=== PATIENT | male | born 2000 | race Caucasian/White ===

== ENCOUNTER 2023-12-19 12:35 | Emergency (ER) | payer MEDICAID, SELFPAY ==
[2023-12-19 12:36] VITALS: BMI 31.3
--- NOTE | 2023-12-19 12:48 | PC.NURSE ---
PT CALLED BACK X1 @12:46. NO RESPONSE
--- NOTE | 2023-12-19 13:14 | PC.NURSE ---
advised pt was waiting outside. when looking for pt hayder were not found outside and did not answer when name was called.
--- NOTE | 2023-12-19 13:45 | PC.NURSE ---
pt was not found in lobby or outside.
== END 2023-12-19 13:45 | disposition left against medical advice (07) ==
PROVIDERS: Emergency Provider Emergency Medicine
DX: Z53.21 Procedure and treatment not carried out due to patient leaving prior to being seen by health care provider (principal)